=== PATIENT | male | born 1955 | race American Indian/Alaskan Native ===

== ENCOUNTER 2016-10-26 10:37 | Emergency (ER) | payer MEDICAID ==
[2016-10-26 10:37] VITALS: BMI 25.5
[2016-10-26 10:42] VITALS: BP 157/80; PULSE 99; RESP 18; TEMP 98; O2SAT 97
[2016-10-26] MEDS ORDERED: Amoxicillin-Clav 500-125 mg Tab PO STA (11:28)
--- NOTE | 2016-10-26 11:29 | C.PDOC ---
History Of Present Illness 61 y/o male presents to the ED for evaluation of dental pain which began yesterday. Patient reports pain to right lower anterior premolar area. Patient denies fever, chills, injuries to affected area. Time Seen by Provider: 10/26/16 11:23 Chief Complaint (Nursing): Dental Pain History Per: Patient History/Exam Limitations: no limitations Onset/Duration Of Symptoms: Hrs Current Symptoms Are (Timing): Still Present Quality: Positive for: "Pain" Additional History Per: Patient Past Medical History Reviewed: Historical Data, Nursing Documentation, Vital Signs Vital Signs: Last Vital Signs Temp 98 F 10/26/16 10:40 Pulse 99 H 10/26/16 10:40 Resp 18 10/26/16 10:40 BP 157/80 H 10/26/16 10:40 Pulse Ox 97 10/26/16 14:13 - Medical History PMH: No Chronic Diseases Surgical History: No Surg Hx Family History: States: Unknown Family Hx - Social History Hx Tobacco Use: No Hx Alcohol Use: No Hx Substance Use: No - Immunization History Hx Tetanus Toxoid Vaccination: No Hx Influenza Vaccination: No Hx Pneumococcal Vaccination: No Review Of Systems Except As Marked, All Systems Reviewed And Found Negative. Constitutional: Negative for: Fever, Chills ENT: Positive for: Other (+dental pain, right lower anterior premolar area ) Physical Exam - Physical Exam Appears: Non-toxic, No Acute Distress Skin: Normal Color, Warm, Dry Head: Atraumatic, Normacephalic Eye(s): bilateral: Normal Inspection Oral Mucosa: Moist Teeth: No Normal Dentition (scant, poor dentition ), Other (+chronic dental fracture at the level of the gums ) Gingiva: No Swelling (localized ) Neck: Supple Extremity: Normal ROM Neurological/Psych: Normal Speech, Normal Cognition ED Course And Treatment O2 Sat by Pulse Oximetry: 97 (on RA) Pulse Ox Interpretation: Normal Progress Note: Pt received Amoxicillin PO and Motrin PO. Medical Decision Making Medical Decision Making: scant few dentition, poor condition R lower premolar old fx, now tender pt has private dentist will see this week. Disposition Doctor Will See Patient In The: Office Counseled Patient/Family Regarding: Studies Performed, Diagnosis - Disposition Referrals: [facility] [Outside] [facility] [Outside] Disposition: HOME/ ROUTINE Disposition Time: 11:29 Condition: GOOD Additional Instructions: amoxicillin 500 mg twice a day for 7 days Motrin 400-600 mg every 6 hours as needed for dental pain Pepcid 20 mg @ night to prevent stomach irritation from the Motrin Follow-up with your dentist this week for definitive treatment. Prescriptions: Amoxicillin 500 mg PO BID #13 tablet Instructions: Toothache (ED) - Clinical Impression Clinical Impression: Dentalgia - Scribe Statement The provider has reviewed the documentation as recorded by the Scribe (Thelma Mcgarry) Provider Attestation: All medical record entries made by the Scribe were at my direction and personally dictated by me. I have reviewed the chart and agree that the record accurately reflects my personal performance of the history, physical exam, medical decision making, and the department course for this patient. I have also personally directed, reviewed, and agree with the discharge instructions and disposition.
[2016-10-26] MEDS ORDERED: Amoxicillin-Clav 500-125 mg Tab PO ONE (11:34)
== END 2016-10-26 11:38 | disposition home or self-care (01) ==
LOC: C.ER 10:37
DX: K08.89 Other specified disorders of teeth and supporting structures (principal)

== ENCOUNTER 2017-05-03 11:32 | Emergency (ER) | payer MEDICAID ==
[2017-05-03 11:32] VITALS: BMI 25.5
[2017-05-03 11:43] VITALS: BP 150/71; PULSE 95; RESP 18; TEMP 97.5; O2SAT 100
[2017-05-03] MEDS ORDERED: Albuterol 0.083% Inhal Sol (2.5 mg/3 mL) UD IH STA (12:05)
--- NOTE | 2017-05-03 12:17 | C.PDOC ---
History Of Present Illness 62-year-old male, presents to the emergency department for evaluation of nasal congestion, runny nose and dry cough since last night. States he was unable to sleep due to dry cough. Denies fevers chills, chest pain, wheezing. Time Seen by Provider: 05/03/17 11:48 Chief Complaint (Nursing): Cough, Cold, Congestion History Per: Patient History/Exam Limitations: no limitations Onset/Duration Of Symptoms: Hrs Current Symptoms Are (Timing): Still Present Past Medical History Reviewed: Historical Data, Nursing Documentation, Vital Signs Vital Signs: Last Vital Signs Temp 97.5 F L 05/03/17 11:38 Pulse 95 H 05/03/17 11:38 Resp 18 05/03/17 11:38 BP 150/71 05/03/17 11:38 Pulse Ox 100 05/03/17 12:21 Family History: States: No Known Family Hx - Social History Hx Tobacco Use: No Hx Alcohol Use: No Hx Substance Use: No - Immunization History Hx Tetanus Toxoid Vaccination: No Hx Influenza Vaccination: No Hx Pneumococcal Vaccination: No Review Of Systems Except As Marked, All Systems Reviewed And Found Negative. Constitutional: Negative for: Fever ENT: Positive for: Nose Discharge, Throat Pain Cardiovascular: Negative for: Chest Pain Respiratory: Positive for: Cough. Negative for: Sputum Gastrointestinal: Negative for: Nausea, Vomiting Physical Exam - Physical Exam Appears: Non-toxic, No Acute Distress Skin: Warm, Dry, No Rash Eye(s): bilateral: PERRL Ear(s): Bilateral: Normal Nose: No Flaring, Discharge (B/L clear) Oral Mucosa: Moist Lips: Normal Appearing Throat: No Erythema, No Drooling Neck: Trachea Midline, Supple Chest: Symmetrical Cardiovascular: Rhythm Regular, No Murmur, No JVD, Other ((-) carotid bruits B/L ) Respiratory: No Decreased Breath Sounds, No Accessory Muscle Use, No Rales, No Rhonchi, No Stridor, Wheezing (scattered, right basilar) Gastrointestinal/Abdominal: Soft, No Tenderness, No Distention, No Guarding Back: No CVA Tenderness Extremity: Normal ROM, No Pedal Edema, No Deformity, No Swelling Neurological/Psych: Oriented x3, Normal Speech ED Course And Treatment O2 Sat by Pulse Oximetry: 100 (on RA) Pulse Ox Interpretation: Normal - Radiology CXR: Viewed By Me CXR Interpretation: Yes: Infiltrates (RLL) Progress Note: On re-evAl, pt is afebrile, hemodynamicalys table. non-toxic. Ambulatory in ED with stable gait. pULSeoX 100% RA. ENT: no acute findings. Neck: SUpple, (-) meningeal sign, (-) JVD, (-) carotid bruits. Lungs: CTA B/L, BS equal B/L. Abd: benign. Neuorlogicaly intact. CXR review (+)?RLL. results review and discussed with pt. Storekeeper Steward dvised and ref. to F/u with PMD in 2- 3 days for re-eavl. return to ED if any worsening or new changes. Disposition Counseled Patient/Family Regarding: Diagnosis, Need For Followup, Rx Given - Disposition Referrals: Gopi Henson MD [Medical Doctor] - Disposition: HOME/ ROUTINE Disposition Time: 13:08 Condition: STABLE Additional Instructions: ENCOURAGE FLUIDS TAKE MEDICATION PRESCRIBED FOLLOW UP WITH PMD IN 2-3 DAYS FOR RE-EVALUATION. RETURN TO ED IF ANY WORSENING OR NEW CHANGES. Prescriptions: Albuterol HFA [Ventolin HFA 90 mcg/actuation (8 g)] 1 puff IH Q6 #1 inhaler Azithromycin 1 tab PO DAILY #4 tab Benzonatate [Tessalon Perle] 100 mg PO TID #14 capsule Prednisone [Deltasone] 40 mg PO DAILY #6 tablet Instructions: Community Acquired Pneumonia (DC) Forms: [employer] (Pashto) - Clinical Impression Clinical Impression: Pneumonia - Scribe Statement The provider has reviewed the documentation as recorded by the Scribe (Olesya Jones) All medical record entries made by the Scribe were at my direction and personally dictated by me. I have reviewed the chart and agree that the record accurately reflects my personal performance of the history, physical exam, medical decision making, and the department course for this patient. I have also personally directed, reviewed, and agree with the discharge instructions and disposition.
[2017-05-03] MEDS ORDERED: Albuterol 0.083% Inhal Sol (2.5 mg/3 mL) UD ONE (12:22)
[2017-05-03] MEDS ORDERED: Albuterol 0.042% Inhal Sol (1.25 mg/3 mL) UD ONE (12:22)
[2017-05-03] MEDS ORDERED: Albuterol-Ipratrop 3 mg / 0.5 (3 ml) UD IH STA (13:08)
[2017-05-03] MEDS ORDERED: Albuterol-Ipratrop 3 mg / 0.5 (3 ml) UD ONE (13:11)
--- NOTE | 2017-05-03 13:22 | RAD ---
HISTORY: Cough COMPARISON: No prior. TECHNIQUE: Chest PA and lateral FINDINGS: LINES AND TUBES: None. LUNG AND PLEURA: The lungs are hyperinflated and there is peribronchial thickening with chronic changes in both lungs. There is no focal consolidation. HEART AND MEDIASTINUM: The heart is not enlarged. The hilar and mediastinal contours are within normal limits. SKELETAL STRUCTURES: The bony structures are within normal limits for the patient's age. VISUALIZED UPPER ABDOMEN: Normal. OTHER FINDINGS: None. IMPRESSION: No active pulmonary disease. COPD.
== END 2017-05-03 13:22 | disposition home or self-care (01) ==
LOC: C.ER 11:32
DX: J18.9 Pneumonia, unspecified organism (principal); F17.210 Nicotine dependence, cigarettes, uncomplicated

== ENCOUNTER 2017-05-14 15:28 | Emergency (ER) | payer MEDICAID ==
[2017-05-14 15:29] VITALS: BMI 25.5
[2017-05-14 15:40] VITALS: BP 124/74; PULSE 116; RESP 20; TEMP 98.6; O2SAT 100
--- NOTE | 2017-05-14 16:16 | C.PDOC ---
History Of Present Illness 62 year old male presents to ED for evaluation of nonpruritic rash to left forearm for the last 2 days. Pt believes that the rash "is due to the snow". Denies injury, fall, change in sensation, fever, or any other associated symptoms at this time. Time Seen by Provider: 05/14/17 15:51 Chief Complaint (Nursing): Abnormal Skin Integrity History Per: Patient History/Exam Limitations: no limitations Onset/Duration Of Symptoms: Days (2) Current Symptoms Are (Timing): Still Present Location Of Injury: Left: Forearm Quality Of Symptoms: denies: Itching, Swollen, Draining Recent travel outside of the [place]: No Additional History Per: Patient Past Medical History Reviewed: Historical Data, Nursing Documentation, Vital Signs Vital Signs: Last Vital Signs Temp 98.6 F 05/14/17 15:38 Pulse 116 H 05/14/17 15:38 Resp 20 05/14/17 15:38 BP 124/74 05/14/17 15:38 Pulse Ox 100 05/14/17 16:35 Family History: States: Unknown Family Hx - Social History Hx Tobacco Use: No Hx Alcohol Use: No Hx Substance Use: No - Immunization History Hx Tetanus Toxoid Vaccination: No Hx Influenza Vaccination: No Hx Pneumococcal Vaccination: No Review Of Systems Except As Marked, All Systems Reviewed And Found Negative. Constitutional: Negative for: Fever, Chills Musculoskeletal: Negative for: Arm Pain Skin: Positive for: Rash (left forearm) Neurological: Negative for: Weakness, Numbness Physical Exam - Physical Exam Appears: Non-toxic, No Acute Distress Skin: Warm, Dry, No Rash, No Ecchymosis, Other (healing scabbing abrasion to proximal aspect of left forearm, no warmth ) Head: Atraumatic, Normacephalic Eye(s): bilateral: Normal Inspection Extremity: Normal ROM (FROM of left arm), No Tenderness, Capillary Refill (less than 2 seconds), No Deformity, No Swelling Pulses: Left Radial: Normal, Right Radial: Normal Neurological/Psych: Oriented x3, Normal Speech ED Course And Treatment O2 Sat by Pulse Oximetry: 100 (RA) Pulse Ox Interpretation: Normal Progress Note: Pt was given wound care instructions, and was advised to apply bacitracin to affected area. Patient was instructed to follow up with physician/ clinic in 1-2 days for further evaluation. Disposition Counseled Patient/Family Regarding: Diagnosis, Need For Followup, Rx Given - Disposition Disposition: HOME/ ROUTINE Disposition Time: 16:14 Condition: STABLE Additional Instructions: Please follow up in clinic Apply bacitracin oint Return to ER if worse Prescriptions: Bacitracin Ointment [Bacitracin] 30 gm TOP BID #1 tube Instructions: Abrasion (ED) Forms: [employer] (Portuguese) - Clinical Impression Clinical Impression: Superficial abrasion - PA / SPINDLE TESTER / Resident Statement MD/DO has reviewed & agrees with the documentation as recorded. - Scribe Statement The provider has reviewed the documentation as recorded by the Scribe Ricardo Mcgarry All medical record entries made by the Jose Mibmarily were at my direction and personally dictated by me. I have reviewed the chart and agree that the record accurately reflects my personal performance of the history, physical exam, medical decision making, and the department course for this patient. I have also personally directed, reviewed, and agree with the discharge instructions and disposition.
== END 2017-05-14 16:48 | disposition home or self-care (01) ==
LOC: C.ER 15:28
DX: S50.812A Abrasion of left forearm, initial encounter (principal); X58.XXXA Exposure to other specified factors, initial encounter; Y92.89 Other specified places as the place of occurrence of the external cause

== ENCOUNTER 2017-07-23 09:15 | Emergency (ER) | payer MEDICAID ==
[2017-07-23 09:20] VITALS: BMI 19.0
[2017-07-23 09:22] VITALS: BP 145/77; PULSE 86; RESP 18; TEMP 97.7; O2SAT 99
--- NOTE | 2017-07-23 09:48 | C.PDOC ---
History Of Present Illness "I HAVE R EAR WAX BUILDUP". PS WAS USING QTIPS ONLY BUT NO LONGER BC CONCERN FOR PUSHING WAX IN. NO OTHER DROPS, ETC USED. DENIES OTHER ASSOC SX EXAM NAD HEENT L TM WNL R TM PARTIAL OBSTRUCT CERUMEN, PARTIAL VISUAL R TM, NO VISUALIZED PERF/ERYTHEMA. CANAL WNL REMAINDER NEG Time Seen by Provider: 07/23/17 09:41 Chief Complaint (Nursing): ENT Problem History Per: Patient History/Exam Limitations: None Past Medical History Reviewed: Historical Data, Nursing Documentation, Vital Signs Vital Signs: Last Vital Signs Temp 97.7 F 07/23/17 09:21 Pulse 86 07/23/17 09:21 Resp 18 07/23/17 09:21 BP 145/77 07/23/17 09:21 Pulse Ox 99 07/23/17 09:48 Family History: States: No Known Family Hx - Social History Hx Tobacco Use: No Hx Alcohol Use: No Hx Substance Use: No - Immunization History Hx Tetanus Toxoid Vaccination: No Hx Influenza Vaccination: No Hx Pneumococcal Vaccination: No Review Of Systems ENT: Positive for: Other ( R EAR WAX BUILDUP). Negative for: Ear Discharge Respiratory: Negative for: Cough Gastrointestinal: Negative for: Vomiting Skin: Negative for: Rash Physical Exam - Physical Exam Appears: Non-toxic, No Acute Distress Skin: Warm, Dry, No Rash Head: Normacephalic Eye(s): right: Other (R TM PARTIAL OBSTRUCT CERUMEN, PARTIAL VISUAL R TM, NO VISUALIZED PERF/ERYTHEMA. CANAL WNL), left: Normal Inspection Nose: Normal, No Flaring, No Discharge Oral Mucosa: Moist Lips: Normal Appearing Neck: Normal ROM Neurological/Psych: Oriented x3, Normal Speech ED Course And Treatment O2 Sat by Pulse Oximetry: 99 (RA) Pulse Ox Interpretation: Normal Disposition Counseled Patient/Family Regarding: Diagnosis, Need For Followup, Rx Given - Disposition Referrals: [facility] [Outside] [facility] [Outside] Disposition: HOME/ ROUTINE Disposition Time: 09:45 Condition: GOOD Prescriptions: Carbamide Peroxide/NaCl/Nahco3 [Clearcanal Ear Wax Complete] 10 drop OD BID #1 kit Instructions: Ear Wax Impaction Forms: [employer] (Tristanian) - Clinical Impression Clinical Impression: Cerumen impaction - Scribe Statement The provider has reviewed the documentation as recorded by the Scribe (Olesya Jones) All medical record entries made by the Scribe were at my direction and personally dictated by me. I have reviewed the chart and agree that the record accurately reflects my personal performance of the history, physical exam, medical decision making, and the department course for this patient. I have also personally directed, reviewed, and agree with the discharge instructions and disposition.
== END 2017-07-23 09:51 | disposition home or self-care (01) ==
LOC: C.ER 09:15
DX: H61.21 Impacted cerumen, right ear (principal)

== ENCOUNTER 2017-08-12 10:31 | Emergency (ER) | payer MEDICAID ==
[2017-08-12 10:44] VITALS: BMI 25.9
[2017-08-12 10:49] VITALS: BP 154/82; PULSE 94; RESP 18; TEMP 97.7; O2SAT 98
[2017-08-12] MEDS ORDERED: Naproxen 550 mg Tab PO STA (11:09)
[2017-08-12] MEDS ORDERED: Naproxen 550 mg Tab PO ONE (11:18)
--- NOTE | 2017-08-12 12:02 | C.PDOC ---
History Of Present Illness 62 y/o male presents to the ER complaining of right gluteal pain that radiates down the right leg. Patient reports that he did try any medications for his pain. He denies falls or injuries, fever, dysuria/hematuria, low back pain. Time Seen by Provider: 08/12/17 10:49 Chief Complaint (Nursing): Lower Extremity Problem/Injury History Per: Patient History/Exam Limitations: no limitations Onset/Duration Of Symptoms: Hrs Current Symptoms Are (Timing): Still Present Severity: Moderate Past Medical History Reviewed: Historical Data, Nursing Documentation, Vital Signs Vital Signs: Last Vital Signs Temp 97.7 F 08/12/17 10:48 Pulse 94 H 08/12/17 10:48 Resp 18 08/12/17 10:48 BP 154/82 H 08/12/17 10:48 Pulse Ox 98 08/12/17 13:15 - Medical History PMH: No Chronic Diseases Surgical History: No Surg Hx Family History: States: No Known Family Hx - Social History Hx Tobacco Use: No Hx Alcohol Use: No Hx Substance Use: No - Immunization History Hx Tetanus Toxoid Vaccination: No Hx Influenza Vaccination: No Hx Pneumococcal Vaccination: No Review Of Systems Except As Marked, All Systems Reviewed And Found Negative. Constitutional: Negative for: Fever, Chills Genitourinary: Negative for: Dysuria, Hematuria Musculoskeletal: Positive for: Other (right gluteal pain). Negative for: Back Pain Skin: Negative for: Rash Neurological: Negative for: Weakness, Numbness Physical Exam - Physical Exam Appears: Well, Non-toxic, Other (mild pain) Skin: Normal Color, Warm, No Rash (bilateral legs) Eye(s): bilateral: Normal Inspection Oral Mucosa: Moist Neck: Supple Cardiovascular: Rhythm Regular Respiratory: Normal Breath Sounds, No Rales, No Rhonchi, No Wheezing Extremity: Normal ROM (bilateral hips), No Tenderness (tenderness to palpation to hip and gluteal region), No Calf Tenderness, No Deformity, No Swelling Pulses: Left Dorsalis Pedis: Normal, Right Dorsalis Pedis: Normal Neurological/Psych: Oriented x3, Normal Motor, Normal Sensation Gait: Steady ED Course And Treatment O2 Sat by Pulse Oximetry: 98 (RA) Pulse Ox Interpretation: Normal Progress Note: Patient given PO Naprosyn and Flexeril. On reassessment, he reports improvement in his pain and feels well enough to be discharged home. Patient is ambulating normally in ED. Rxs for Naprosyn and Flexeril given, and patient instructed to follow up with PMD/clinic in 1-2 days. He understands he should return to ED if symptoms worsen. Reevaluation Time: 12:00 Reassessment Condition: Improved Disposition Counseled Patient/Family Regarding: Diagnosis, Need For Followup, Rx Given - Disposition Referrals: Linh Chang MD [Staff Provider] - Disposition: HOME/ ROUTINE Disposition Time: 12:00 Condition: STABLE Additional Instructions: FOLLOW UP WITH YOUR DOCTOR/CLINIC IN 1-2 DAYS USE MEDICATIONS DIRECTED RETURN TO ER IF SYMPTOMS WORSEN Prescriptions: Cyclobenzaprine [Flexeril] 10 mg PO BID PRN #15 tab PRN Reason: Muscle Spasm Naproxen [Naprosyn] 1 tab PO BID PRN #25 tab PRN Reason: Pain Instructions: Sciatica (DC) Forms: [employer] (Cameroonian) Print Language: SLOVENIAN - Clinical Impression Clinical Impression: Right sided sciatica - Scribe Statement The provider has reviewed the documentation as recorded by the Javier Hillman Provider Attestation: All medical record entries made by the Javier were at my direction and personally dictated by me. I have reviewed the chart and agree that the record accurately reflects my personal performance of the history, physical exam, medical decision making, and the department course for this patient. I have also personally directed, reviewed, and agree with the discharge instructions and disposition.
== END 2017-08-12 12:15 | disposition home or self-care (01) ==
LOC: C.ER 10:31
DX: M54.31 Sciatica, right side (principal)

== ENCOUNTER 2017-09-15 09:46 | Emergency (ER) | payer MEDICAID ==
[2017-09-15 09:46] VITALS: BMI 25.9
[2017-09-15 09:53] VITALS: BP 146/76; PULSE 82; RESP 20; TEMP 97.8; O2SAT 100
--- NOTE | 2017-09-15 10:52 | C.PDOC ---
History Of Present Illness 62 y/o male presents to the ED complaining of a head cold and nasal congestion for 1 month. Patient was seen by PMD and diagnosed with viral syndrome, no antibiotics given. Denies any associated fevers, chills, chest pain, SOB, vomiting, or diarrhea. Time Seen by Provider: 09/15/17 10:46 Chief Complaint (Nursing): Cough, Cold, Congestion History Per: Patient History/Exam Limitations: no limitations Onset/Duration Of Symptoms: Days Current Symptoms Are (Timing): Still Present Past Medical History Reviewed: Historical Data, Nursing Documentation, Vital Signs Vital Signs: Last Vital Signs Temp 97.8 F 09/15/17 09:51 Pulse 82 09/15/17 09:51 Resp 20 09/15/17 09:51 BP 146/76 09/15/17 09:51 Pulse Ox 100 09/15/17 10:52 - Medical History PMH: No Chronic Diseases Surgical History: No Surg Hx Family History: States: Unknown Family Hx - Social History Hx Tobacco Use: No Hx Alcohol Use: No Hx Substance Use: No - Immunization History Hx Tetanus Toxoid Vaccination: No Hx Influenza Vaccination: No Hx Pneumococcal Vaccination: No Review Of Systems Except As Marked, All Systems Reviewed And Found Negative. Constitutional: Negative for: Fever, Chills ENT: Positive for: Nose Discharge, Nose Congestion Cardiovascular: Negative for: Chest Pain Respiratory: Positive for: Cough. Negative for: Shortness of Breath Gastrointestinal: Negative for: Vomiting, Abdominal Pain, Diarrhea Neurological: Positive for: Headache Physical Exam - Physical Exam Appears: Non-toxic, No Acute Distress Skin: Normal Color, Warm, Dry Head: Atraumatic, Normacephalic Eye(s): bilateral: Normal Inspection, PERRL, EOMI Nose: Discharge (post-nasal drip), Other (nasal congestion noted) Oral Mucosa: Moist Throat: Normal, No Erythema, No Exudate Neck: Normal ROM, Supple Cardiovascular: Rhythm Regular, No Murmur Respiratory: Normal Breath Sounds, No Accessory Muscle Use, No Rales, No Rhonchi , No Wheezing Extremity: Bilateral: Atraumatic, Normal Color And Temperature Neurological/Psych: Oriented x3, Normal Speech ED Course And Treatment O2 Sat by Pulse Oximetry: 100 (RA) Pulse Ox Interpretation: Normal Medical Decision Making Medical Decision Making: Impression: seasonal allergies clear lungs + nasal congestion Patient is stable for d/c home. Advised to take OTC allergy medication Disposition Doctor Will See Patient In The: Office Counseled Patient/Family Regarding: Studies Performed, Diagnosis - Disposition Referrals: Gopi Henson MD [Medical Doctor] - Disposition: HOME/ ROUTINE Disposition Time: 10:51 Condition: GOOD Additional Instructions: Flonase, Rosa, Zyrtec and other OTC seasonal allergy meds as needed Follow-up with your PMD as needed. Instructions: Seasonal Allergies in Adults Forms: [employer] [facility] (Thai) - POA Present On Arrival: None - Clinical Impression Clinical Impression: Seasonal allergies - Scribe Statement The provider has reviewed the documentation as recorded by the Scribe (Emily Sosa) Provider Attestation: All medical record entries made by the Scribe were at my direction and personally dictated by me. I have reviewed the chart and agree that the record accurately reflects my personal performance of the history, physical exam, medical decision making, and the department course for this patient. I have also personally directed, reviewed, and agree with the discharge instructions and disposition.
== END 2017-09-15 10:56 | disposition home or self-care (01) ==
LOC: C.ER 09:46
DX: J30.2 Other seasonal allergic rhinitis (principal)

== ENCOUNTER 2017-10-13 09:01 | Emergency (ER) | payer MEDICAID ==
[2017-10-13 09:02] VITALS: BMI 25.9
[2017-10-13 09:06] VITALS: BP 122/72; PULSE 106; RESP 18; TEMP 98.5; O2SAT 99
--- NOTE | 2017-10-13 09:51 | C.PDOC ---
<[place] Rodriguez - Last Filed: 10/13/17 09:47> <Zach Olivo - Last Filed: 10/13/17 10:07> Time Seen by Provider: 10/13/17 09:08 Chief Complaint (Nursing): Abnormal Skin Integrity Past Medical History Family History: States: Unknown Family Hx - Social History Hx Tobacco Use: No Hx Alcohol Use: No Hx Substance Use: No - Immunization History Hx Tetanus Toxoid Vaccination: No Hx Influenza Vaccination: No Hx Pneumococcal Vaccination: No <Florida Rodriguez - Last Filed: 10/13/17 09:47> Vital Signs: Last Vital Signs Temp 98.5 F 10/13/17 09:04 Pulse 106 H 10/13/17 09:04 Resp 18 10/13/17 09:04 BP 122/72 10/13/17 09:04 Pulse Ox 99 10/13/17 09:58 ED Course And Treatment O2 Sat by Pulse Oximetry: 99 <Florida Rodriguez - Last Filed: 10/13/17 09:47> Disposition <Florida Rodriguez - Last Filed: 10/13/17 09:47> Counseled Patient/Family Regarding: Diagnosis, Need For Followup, Rx Given - Disposition Disposition Time: 10:05 <Zach Olivo - Last Filed: 10/13/17 10:07> - Disposition Referrals: Amador Arias MD [Staff Provider] - Disposition: HOME/ ROUTINE Condition: STABLE Additional Instructions: follow up with surgeon in 2 days call to make an appointment take medications as prescribed return to ER if symptoms worsens or progress apply warm compresses to neck area Prescriptions: Cephalexin [Keflex] 500 mg PO QID #40 capsule Sulfamethoxazole/Trimethoprim [Bactrim DS 800 mg-160 mg] 1 tab PO BID #14 tab Instructions: Skin Abscess Forms: [facility] (Yi), General Discharge Instructions - Clinical Impression Clinical Impression: Abscess
--- NOTE | 2017-10-13 09:55 | CP.PCM.CON ---
History of Present Illness - History of Present Illness History of Present Illness: SURGERY CONSULT NOTE FOR DR. ORELLANA 62M presents with left neck lump that began yesterday. Patient states lup got much bigger over night and has now started becoming painful. Pain does not radiate anywhere. She had an episode of this in the past in the back of his head. He denies any fevers, chills, or any other symptoms. PMH: denies PSH: denies Social: admits tobacco use, denies alcohol use Allergies: NKDA Past Patient History - Infectious Disease Hx of Infectious Diseases: None - Past Social History Smoking Status: Heavy Smoker > 10 Cigarettes Daily - PSYCHIATRIC Hx Substance Use: No - SURGICAL HISTORY Hx Surgeries: No - ANESTHESIA Hx Anesthesia: No Hx Anesthesia Reactions: No Meds Allergies/Adverse Reactions: Allergies Allergy/AdvReac Type Severity Reaction Status Date / Time No Known Allergies Allergy Verified 10/13/17 09:06 Physical Exam - Constitutional Appears: Non-toxic, No Acute Distress - Eye Exam Eye Exam: EOMI, PERRL - Neck Exam Additional comments: left neck 1*1inch sebaceous cyst, with erythema on area and tenderness to palpation - Respiratory Exam Respiratory Exam: Clear to Auscultation Bilateral, NORMAL BREATHING PATTERN - Cardiovascular Exam Cardiovascular Exam: REGULAR RHYTHM, +S1, +S2 - GI/Abdominal Exam GI & Abdominal Exam: Soft. absent: Distended, Firm, Guarding, Mass, Rebound, Rigid, Tenderness - Extremities Exam Extremities exam: Negative for: pedal edema, tenderness - Neurological Exam Neurological exam: Alert, Oriented x3 - Psychiatric Exam Psychiatric exam: Normal Affect, Normal Mood - Skin Skin Exam: Dry, Intact, Normal Color, Warm Results - Vital Signs Recent Vital Signs: Last Vital Signs Temp 98.5 F 10/13/17 09:04 Pulse 106 H 10/13/17 09:04 Resp 18 10/13/17 09:04 BP 122/72 10/13/17 09:04 Pulse Ox 99 10/13/17 09:50 Assessment & Plan - Assessment and Plan (Free Text) Assessment: 62M with left neck sebaceous cyst Plan: - antibiotics and follow up in office. Discussed with Dr. Hugo Lopez, PGY2
[2017-10-13] MEDS ORDERED: Tmp-Smz 800 mg-160 mg DS Tab PO STA (10:04)
[2017-10-13] MEDS ORDERED: Tmp-Smz 800 mg-160 mg DS Tab ONE (10:09)
--- NOTE | 2017-10-13 10:36 | C.PDOC ---
History Of Present Illness Patient presents to ED for evaluation of growth to neck area for 1 day. Patient denies fever, chills, nausea, vomiting, draining or any other complaints at this time. Time Seen by Provider: 10/13/17 09:08 Chief Complaint (Nursing): Abnormal Skin Integrity History Per: Patient History/Exam Limitations: no limitations Onset/Duration Of Symptoms: Days Current Symptoms Are (Timing): Still Present Past Medical History Reviewed: Historical Data, Nursing Documentation, Vital Signs Vital Signs: Last Vital Signs Temp 98.5 F 10/13/17 09:04 Pulse 106 H 10/13/17 09:04 Resp 18 10/13/17 09:04 BP 122/72 10/13/17 09:04 Pulse Ox 99 10/13/17 10:40 - Medical History PMH: No Chronic Diseases Surgical History: No Surg Hx Family History: States: No Known Family Hx - Social History Hx Tobacco Use: No Hx Alcohol Use: No Hx Substance Use: No - Immunization History Hx Tetanus Toxoid Vaccination: No Hx Influenza Vaccination: No Hx Pneumococcal Vaccination: No Review Of Systems Except As Marked, All Systems Reviewed And Found Negative. Musculoskeletal: Positive for: Neck Pain (growth) Physical Exam - Physical Exam Appears: Non-toxic, No Acute Distress Skin: Warm, Dry, No Rash, Other (Erythematous indurated mass to left anterior neck) Head: Normacephalic Eye(s): bilateral: Normal Inspection Oral Mucosa: Moist Neck: Normal ROM, Supple Cardiovascular: Rhythm Regular Respiratory: Normal Breath Sounds, No Rales, No Rhonchi, No Wheezing Gastrointestinal/Abdominal: Soft, No Tenderness, No Guarding, No Rebound Neurological/Psych: Oriented x3 ED Course And Treatment O2 Sat by Pulse Oximetry: 99 (RA) Pulse Ox Interpretation: Normal Medical Decision Making Medical Decision Making: Assessment: abscess, Subasis cyst Progress: 920am: D/w neurosurgical nurse practitioner will eval patient at bedside vice president business & corporate development eval pt at bedside and instructed for po antibiotics to be started and patient to f.u with Dr. Arias who case was discussed with Disposition - Disposition Referrals: Amador Arias MD [Staff Provider] - Disposition: HOME/ ROUTINE Disposition Time: 10:45 Condition: STABLE Additional Instructions: follow up with surgeon in 2 days call to make an appointment take medications as prescribed return to ER if symptoms worsens or progress apply warm compresses to neck area Prescriptions: Cephalexin [Keflex] 500 mg PO QID #40 capsule Sulfamethoxazole/Trimethoprim [Bactrim DS 800 mg-160 mg] 1 tab PO BID #14 tab Instructions: Skin Abscess Forms: General Discharge Instructions, [facility] (Romanian) - Clinical Impression Clinical Impression: Abscess - Scribe Statement The provider has reviewed the documentation as recorded by the Jose Mibmarily Nolan All medical record entries made by the Jose Mibmarily were at my direction and personally dictated by me. I have reviewed the chart and agree that the record accurately reflects my personal performance of the history, physical exam, medical decision making, and the department course for this patient. I have also personally directed, reviewed, and agree with the discharge instructions and disposition.
== END 2017-10-13 10:12 | disposition home or self-care (01) ==
LOC: C.ER 09:01
DX: L02.11 Cutaneous abscess of neck (principal); F17.210 Nicotine dependence, cigarettes, uncomplicated

== ENCOUNTER 2018-03-18 10:54 | Emergency (ER) | payer MEDICAID ==
[2018-03-18 10:54] VITALS: BMI 25.9
[2018-03-18 11:10] VITALS: BP 153/87; PULSE 102; RESP 19; TEMP 97.6; O2SAT 99
--- NOTE | 2018-03-18 12:11 | C.PDOC ---
History Of Present Illness 63-year-old male, presents to the emergency department with complaints of a subjective fever, cough and body aches ongoing for the past 2-3 days. Patient has been taking over the counter medications with minimal relied prompting visit. Time Seen by Provider: 03/18/18 11:38 Chief Complaint (Nursing): Cough, Cold, Congestion History Per: Patient History/Exam Limitations: no limitations Past Medical History Reviewed: Historical Data, Nursing Documentation, Vital Signs Vital Signs: Last Vital Signs Temp 97.6 F 03/18/18 11:02 Pulse 102 H 03/18/18 11:02 Resp 19 03/18/18 11:02 BP 153/87 H 03/18/18 11:02 Pulse Ox 99 03/18/18 11:02 Family History: States: No Known Family Hx - Social History Hx Tobacco Use: No Hx Alcohol Use: No Hx Substance Use: No - Immunization History Hx Tetanus Toxoid Vaccination: No Hx Influenza Vaccination: No Hx Pneumococcal Vaccination: No Review Of Systems Constitutional: Positive for: Fever Respiratory: Positive for: Cough Musculoskeletal: Negative for: Back Pain Neurological: Negative for: Weakness, Numbness Physical Exam - Physical Exam Appears: Non-toxic, No Acute Distress, Unkempt Skin: Warm, Dry, No Rash Head: Atraumatic, Normacephalic Eye(s): bilateral: Normal Inspection Ear(s): Bilateral: Normal Nose: Normal Oral Mucosa: Moist Lips: Normal Appearing Throat: No Erythema, No Exudate Neck: Normal ROM, Supple Lymphatic: Normal Exam Chest: Symmetrical, No Tenderness Cardiovascular: Rhythm Regular, No Friction Rub, No Murmur Respiratory: No Accessory Muscle Use, Rhonchi (B/L), No Wheezing Gastrointestinal/Abdominal: Soft, No Tenderness Back: Normal Inspection, No CVA Tenderness Extremity: Normal ROM, No Deformity, No Swelling Neurological/Psych: Oriented x3, Normal Speech, Normal Motor Gait: Steady ED Course And Treatment O2 Sat by Pulse Oximetry: 99 (on RA) Pulse Ox Interpretation: Normal (RA) Disposition - Disposition Referrals: Gopi Henson MD [Medical Doctor] - Disposition: HOME/ ROUTINE Disposition Time: 12:09 Condition: STABLE Additional Instructions: Follow up with the medical doctor within 1-2 days,. Return if worsened. Prescriptions: Azithromycin [Zithromax] 250 mg PO DAILY #4 tab Ibuprofen [Motrin] 600 mg PO TID #21 tab Loratadine [Claritin] 10 mg PO DAILY #10 tab Instructions: Viral Pneumonia (ED) Forms: [facility] (Central African) - Clinical Impression Clinical Impression: Bronchitis - Scribe Statement The provider has reviewed the documentation as recorded by the Scribe (Olesya Bass) All medical record entries made by the Scribe were at my direction and personally dictated by me. I have reviewed the chart and agree that the record accurately reflects my personal performance of the history, physical exam, medical decision making, and the department course for this patient. I have also personally directed, reviewed, and agree with the discharge instructions and disposition.
== END 2018-03-18 12:16 | disposition home or self-care (01) ==
LOC: C.ER 10:54
DX: J40 Bronchitis, not specified as acute or chronic (principal)

== ENCOUNTER 2018-07-12 09:24 | Emergency (ER) | payer MEDICAID, MEDICARE ==
[2018-07-12 09:24] VITALS: BMI 25.9
[2018-07-12 09:31] VITALS: RESP 18; TEMP 98.6; O2SAT 97
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
[2018-07-12] MEDS ORDERED: Lidocaine 1% Inj (20ml) INFIL STA (09:48)
[2018-07-12] MEDS ORDERED: Lidocaine Hydrochloride 5 ML INJ ONE (10:10)
[2018-07-12] MEDS ORDERED: Tetanus/Diphtheria Toxoids 0.5 ml Syringe IM ONE ×2 (10:42→11:23)
[2018-07-12] MEDS ORDERED: Lidocaine 1%/Epinephrine 1:100000 30 ml vial IJ ONE (13:17)
[2018-07-12] MEDS ORDERED: Bacitracin 500 Units/gm Oint Foilpak UD ONE (14:31)
[2018-07-12 14:40] VITALS: BP 146/87; PULSE 91
== END 2018-07-12 15:06 | disposition home or self-care (01) ==
LOC: C.ER 09:24
DX: S01.311A Laceration without foreign body of right ear, initial encounter (principal); Y04.0XXA Assault by unarmed brawl or fight, initial encounter; Z23 Encounter for immunization

== ENCOUNTER 2018-08-11 09:32 | Emergency (ER) | payer MEDICAID ==
[2018-08-11 09:32] VITALS: BMI 25.9
[2018-08-11 09:40] VITALS: PULSE 95; RESP 18; TEMP 97.8; O2SAT 98
--- NOTE | 2018-08-11 10:09 | C.PDOC ---
History Of Present Illness 63 y/o male presents to the ER for suture removal from right ear. Patient states that he had sutures placed by surgeon on 07/12/18.Patient reports that he was supposed to follow up in her office but he "forgot." Patient denies having any ear pain,bleeding, and discharge. Time Seen by Provider: 08/11/18 09:42 Chief Complaint (Nursing): Suture/Staple Removal History Per: Patient History/Exam Limitations: no limitations Past Medical History Reviewed: Historical Data, Nursing Documentation, Vital Signs Vital Signs: Last Vital Signs Temp 97.8 F 08/11/18 09:38 Pulse 95 H 08/11/18 09:38 Resp 18 08/11/18 09:38 BP 183/113 H 08/11/18 09:38 Pulse Ox 98 08/11/18 09:38 - Medical History PMH: No Chronic Diseases Surgical History: No Surg Hx Family History: States: No Known Family Hx - Social History Hx Tobacco Use: No Hx Alcohol Use: No Hx Substance Use: No - Immunization History Hx Tetanus Toxoid Vaccination: No Hx Influenza Vaccination: No Hx Pneumococcal Vaccination: No Review Of Systems Except As Marked, All Systems Reviewed And Found Negative. Constitutional: Negative for: Fever, Chills ENT: Negative for: Ear Pain, Ear Discharge Physical Exam - Physical Exam Appears: Non-toxic, No Acute Distress Skin: Warm, Dry, Other (6 sutures intact on right ear, wound is well healed, no erythema, discharge, or bleeding) Head: Normacephalic Eye(s): bilateral: Normal Inspection Nose: Normal Oral Mucosa: Moist Neck: Supple Chest: Symmetrical Neurological/Psych: Oriented x3, Normal Speech ED Course And Treatment O2 Sat by Pulse Oximetry: 98 (RA) Pulse Ox Interpretation: Normal Progress Note: Sutures were removed from ear. Patient tolerated well. Patient has been discharged home. Disposition Counseled Patient/Family Regarding: Diagnosis, Need For Followup - Disposition Referrals: Tereso Cantu MD [Staff Provider] - Disposition: HOME/ ROUTINE Disposition Time: 10:10 Condition: STABLE Instructions: Stitches Removal Forms: [facility] (Welsh) Print Language: ESTONIAN - Clinical Impression Clinical Impression: Removal of suture - Scribe Statement The provider has reviewed the documentation as recorded by the Javier Hillman Provider Attestation: All medical record entries made by the Scribe were at my direction and personally dictated by me. I have reviewed the chart and agree that the record accurately reflects my personal performance of the history, physical exam, medical decision making, and the department course for this patient. I have also personally directed, reviewed, and agree with the discharge instructions and disposition.
[2018-08-11 10:12] VITALS: BP 131/62
== END 2018-08-11 10:12 | disposition home or self-care (01) ==
LOC: C.ER 09:32
DX: Z48.02 Encounter for removal of sutures (principal)

== ENCOUNTER 2018-08-23 15:51 | Emergency (ER) | payer MEDICAID ==
[2018-08-23 15:51] VITALS: BMI 25.9
[2018-08-23 15:58] VITALS: BP 138/63; PULSE 99; RESP 18; TEMP 99.3; O2SAT 98
--- NOTE | 2018-08-23 16:08 | C.PDOC ---
History Of Present Illness 63 y/o male presents to the ER complaining of right upper back pain which began today. Patient states that he felt pain centrally when he was stretching his arms. Patient reports that he also felt "raised area" in upper back. Denies having trauma,drainage, fever,chills,nausea, and vomiting. Time Seen by Provider: 08/23/18 16:03 Chief Complaint (Nursing): Abnormal Skin Integrity History Per: Patient History/Exam Limitations: no limitations Onset/Duration Of Symptoms: Days Current Symptoms Are (Timing): Still Present Severity: Moderate Past Medical History Reviewed: Historical Data, Nursing Documentation, Vital Signs Vital Signs: Last Vital Signs Temp 99.3 F 08/23/18 15:56 Pulse 99 H 08/23/18 15:56 Resp 18 08/23/18 15:56 BP 138/63 08/23/18 15:56 Pulse Ox 98 08/23/18 15:56 - Medical History PMH: No Chronic Diseases Surgical History: No Surg Hx Family History: States: No Known Family Hx - Social History Hx Tobacco Use: No Hx Alcohol Use: No Hx Substance Use: No - Immunization History Hx Tetanus Toxoid Vaccination: No Hx Influenza Vaccination: No Hx Pneumococcal Vaccination: No Review Of Systems Genitourinary: Negative for: Dysuria, Frequency, Incontinence, Hematuria Musculoskeletal: Positive for: Back Pain Physical Exam - Physical Exam Appears: Non-toxic, No Acute Distress Skin: Warm, Dry, Other (2 cm erythematous indurated area to right thoracic region, tender to palpation, no active drainage,) Head: Atraumatic, Normacephalic Eye(s): bilateral: Normal Inspection Nose: Normal Oral Mucosa: Moist Neck: Supple Chest: Symmetrical Cardiovascular: Rhythm Regular Respiratory: Normal Breath Sounds, No Rales, No Rhonchi, No Wheezing Extremity: Normal ROM, Capillary Refill (< 2 seconds) Neurological/Psych: Oriented x3, Normal Speech ED Course And Treatment O2 Sat by Pulse Oximetry: 98 (RA) Pulse Ox Interpretation: Normal Medical Decision Making Medical Decision Making: Plan: --Keflex PO given now and will continue as outpatient Disposition Counseled Patient/Family Regarding: Diagnosis, Need For Followup, Rx Given - Disposition Referrals: Gopi Henson MD [Medical Doctor] - Disposition: HOME/ ROUTINE Disposition Time: 16:15 Condition: STABLE Additional Instructions: Continue antibiotics 4 times a day for 7 days Follow up with PMD in 2 days to assess area Return to ED if symptoms worsen Prescriptions: Cephalexin [cephalexin] 500 mg PO Q6 #27 cap Instructions: Cellulitis (Skin Infection), Adult (DC) Forms: [facility] (Macedonian) - Clinical Impression Clinical Impression: Cellulitis - 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 - Scribe Statement The provider has reviewed the documentation as recorded by the Javier Hillman Provider Attestation All medical record entries made by the Javier were at my direction and personally dictated by me. I have reviewed the chart and agree that the record accurately reflects my personal performance of the history, physical exam, medical decision making, and the department course for this patient. I have also personally directed, reviewed, and agree with the discharge instructions and disposition.
== END 2018-08-23 16:27 | disposition home or self-care (01) ==
LOC: C.ER 15:51
DX: L03.312 Cellulitis of back [any part except buttock and flank] (principal)